=== PATIENT | female | born 1965 | race African-American/Black ===

== ENCOUNTER 2022-04-16 04:15 | Day surgery (SDC) | payer OTHER ==
[2022-04-14 15:53] VITALS: BMI 39.6
[2022-04-16 08:54] VITALS: TEMP 97.7
[2022-04-16 08:59] VITALS: BP 121/96; PULSE 73; RESP 15
== END 2022-04-16 09:03 | disposition home or self-care (01) ==
LOC: JASU-ENDO 04:15
PROVIDERS: ATTEND Internal Medicine Gastroenterology
PROC: 0DB78ZX Excision of Stomach, Pylorus, Via Natural or Artificial Opening Endoscopic, Diagnostic (ICD-10-PCS; 2022-04-16)
PROC: 0DJD8ZZ Inspection of Lower Intestinal Tract, Via Natural or Artificial Opening Endoscopic (ICD-10-PCS; principal; 2022-04-16 08:00)
DX: Z12.11 Encounter for screening for malignant neoplasm of colon (principal); K29.50 Unspecified chronic gastritis without bleeding; B96.81 Helicobacter pylori [H. pylori] as the cause of diseases classified elsewhere; K64.8 Other hemorrhoids; I10 Essential (primary) hypertension
CPT/HCPCS: 43239; G0121; 88305-TC; 88342-TC